=== PATIENT | male | born 1940 | race Hispanic/Latino ===

== ENCOUNTER 2018-02-16 06:44 | Day surgery (SDC) | payer MEDICARE, OTHER ==
[2018-02-08 08:37] VITALS: BMI 25.8
[2018-02-16] MEDS ORDERED: Propofol 10 mg/ml Inj (20 ML) ONE (08:33)
[2018-02-16] MEDS ORDERED: Sodium Chloride 0.9% 1,000 ML IV SCH (09:30)
[2018-02-16 09:54] VITALS: O2SAT 99
[2018-02-16 10:23] VITALS: BP 120/65; PULSE 67; RESP 16; TEMP 97.7
== END 2018-02-16 10:55 | disposition home or self-care (01) ==
LOC: ENDO 06:44
PROVIDERS: ATTEND Internal Medicine Gastroenterology
DX: K29.50 Unspecified chronic gastritis without bleeding (principal); K44.9 Diaphragmatic hernia without obstruction or gangrene; K90.0 Celiac disease; K21.9 Gastro-esophageal reflux disease without esophagitis; I10 Essential (primary) hypertension; D50.9 Iron deficiency anemia, unspecified; D63.8 Anemia in other chronic diseases classified elsewhere; E03.9 Hypothyroidism, unspecified; Z87.11 Personal history of peptic ulcer disease; Z80.8 Family history of malignant neoplasm of other organs or systems
CPT/HCPCS: 43239; 88305; 88342; J2704; J7040 ×2

== ENCOUNTER 2019-03-17 22:48 | Emergency (ER) | payer MEDICARE, OTHER ==
[2019-03-17 22:49] VITALS: BMI 25.8
[2019-03-17 23:48] VITALS: TEMP 98.1
--- NOTE | 2019-03-17 23:56 | ED PDOC ---
Arrival/HPI - General Chief Complaint: Abdominal Pain Time Seen by Provider: 03/17/19 22:53 Historian: Patient - History of Present Illness Narrative History of Present Illness (Text): 03/17/19 23:56 Ezekiel Chong is a 78 year old male, whose past medical history includes Celiac disease, chronic kidney disease, and nephrolithiasis, who presents to the ED complaining of flank pain. Patient states he began experiencing RLQ pain radiat ing to his right flank since this afternoon. Patient denies any fever, chills, nausea, vomiting, diarrhea, urinary symptoms, neck pain, headache, dizziness, or any other complaints. Symptom Onset: Gradual Symptom Course: Unchanged Activities at Onset: Light Context: Home Past Medical History - Provider Review Nursing Documentation Reviewed: Yes - Infectious Disease Hx of Infectious Diseases: None - Tetanus Immunization Tetanus Immunization: Unknown - Cardiac Hx Pacemaker: No - Pulmonary Hx Respiratory Disorders: No - Neurological Hx Paralysis: No - HEENT Hx HEENT Disorder: Yes (wears rx glasses,strabismus with surgery) Hx Deafness: No - Hematological/Oncological Hx Blood Transfusions: No Hx Blood Transfusion Reaction: No - Integumentary Hx Dermatological Disorder: Yes Hx Basal Cell Carcinoma: Yes (skin of right side of eye,right cheek) Hx Melanoma: Yes - Musculoskeletal/Rheumatological Hx Musculoskeletal Disorders: No - Gastrointestinal Hx Gastrointestinal Disorders: Yes (caeliac dse) Hx Pancreatitis: Yes - Psychiatric Hx Emotional Abuse: No Hx Physical Abuse: No Hx Substance Use: No - Past Surgical History Past Surgical History: No Previous - Surgical History Hx Orthopedic Surgery: Yes (r rotator cuff repair 13 yrs ago) - Anesthesia Hx Anesthesia: Yes Hx Anesthesia Reactions: No Hx Malignant Hyperthermia: No - Suicidal Assessment Feels Threatened In Home Enviroment: No Family/Social History - Physician Review Nursing Documentation Reviewed: Yes Family/Social History: Unknown Family HX Smoking Status: Never Smoked Hx Alcohol Use: Yes (SOCIALLY) Hx Substance Use: No Hx Substance Use Treatment: No Allergies/Home Meds Allergies/Adverse Reactions: Allergies No Known Allergies Allergy (Verified 09/29/14 21:08) Home Medications: Home Meds Medication Instructions Recorded Confirmed Levothyroxine [Synthroid] 25 mcg PO QAM 03/14/14 02/16/18 Ascorbic Acid [Vitamin C] 1,000 mg PO DAILY 10/05/16 02/08/18 Cholecalciferol [Vitamin D] 1,000 iu PO DAILY 10/05/16 02/08/18 Folic Acid 1 mg PO DAILY 10/05/16 02/08/18 Multivitamin [One Daily] 1 tab PO DAILY 10/05/16 02/08/18 Omeprazole 20 mg PO DAILY 10/05/16 02/08/18 amLODIPine [Norvasc] 10 mg PO DAILY 02/08/18 02/08/18 Review of Systems - Physician Review All systems were reviewed & negative as marked: Yes - Review of Systems Constitutional: Normal. absent: Fevers Eyes: Normal ENT: Normal Respiratory: Normal. absent: SOB, Cough Cardiovascular: Normal. absent: Chest Pain Gastrointestinal: Abdominal Pain. absent: Diarrhea, Nausea, Vomiting Genitourinary Male: Normal. absent: Dysuria, Frequency, Hematuria, Urinary Output Changes Musculoskeletal: Back Pain. absent: Neck Pain Skin: Normal. absent: Rash Neurological: Normal. absent: Headache, Dizziness Endocrine: Normal Hemo/Lymphatic: Normal Psychiatric: Normal Physical Exam Vital Signs Reviewed: Yes Vital Signs Temp Pulse Resp BP Pulse Ox 03/17/19 22:49 98.1 F 65 18 127/68 97 Temperature: Afebrile Blood Pressure: Normal Pulse: Regular Respiratory Rate: Normal Appearance: Positive for: Well-Appearing, Non-Toxic, Comfortable Pain Distress: None Mental Status: Positive for: Alert and Oriented X 3 - Systems Exam Head: Present: Atraumatic, Normocephalic Pupils: Present: PERRL Extroacular Muscles: Present: EOMI Conjunctiva: Present: Normal Mouth: Present: Moist Mucous Membranes Neck: Present: Normal Range of Motion Respiratory/Chest: Present: Clear to Auscultation, Good Air Exchange. No: Respiratory Distress, Accessory Muscle Use Cardiovascular: Present: Regular Rate and Rhythm, Normal S1, S2. No: Murmurs Abdomen: No: Tenderness, Distention, Peritoneal Signs Back: Present: Normal Inspection Upper Extremity: Present: Normal Inspection. No: Cyanosis, Edema Lower Extremity: Present: Normal Inspection. No: Edema Neurological: Present: GCS=15, CN II-XII Intact, Speech Normal Skin: Present: Warm, Dry, Normal Color. No: Rashes Psychiatric: Present: Alert, Oriented x 3, Normal Insight, Normal Concentration Medical Decision Making ED Course and Treatment: 03/17/19 23:56 Impression: 78 year old male complaining of RLQ pain radiating to his right flank. Plan: -- Labs, lipase -- Urinalysis -- IV fluids -- Zofran -- Morphine -- Reassess and disposition Prior Visits: Notes and results from previous visits were reviewed. Progress Notes: 03/18/19 03:34 CT Abdomen and Pelvis: Moderate prostatomegaly. Benign chronic prostatic calcifications. Uncomplicated colonic diverticulosis. Fluid-filled terminal ileum. Fluid-filled cecum and ascending colon. 4 mm obstructing stone at the right ureterovesical junction. Moderate right hydroureteronephrosis. Bilateral nonobstructing renal stones are noted with the largest measuring 9 mm on the left side. The visualized lung bases are unremarkable. Normal unenhanced liver. Normal gallbladder and extrahepatic biliary system. Normal unenhanced spleen. Normal pancreas. Normal bilateral adrenal glands. Normal size of the right kidney. There is no right renal mass. Normal size of the left kidney. There is no left renal mass. There is no left hydronephrosis. Normal visualized left ureter. Normal visualized stomach. Normal small intestine. The appendix is visualized and appears normal. There is no demonstrated peritoneal fluid. Calcified atheromatous plaques of the abdominal aorta. Normal inferior vena cava. Normal retroperitoneum. Normal urinary bladder. There is no pelvic mass lesion or lymphadenopathy. There is no pelvic fluid. Normal abdominal wall. Spondylosis. IMPRESSION: Obstructing stone of the right ureterovesical junction. Electronically signed on Mar 18, 2019 3:28:15 AM EDT by: Chayito Zepeda M.D., Certified by ADDY, MSK, Neuroradiology 03/18/19 03:39 On re-evaluation, pt has remained symptomatic while in ED. Will discharge pt home for follow-up with his urologist, Dr. Magdaleno, tomorrow. Pt was instructed to return if symptoms worsen or new concerning symptoms arise. - Lab Interpretations I have reviewed the lab results: Yes - RAD Interpretation Suit Attendant: Radiologist - Scribe Statement The provider has reviewed the documentation as recorded by the Shantel Mathew Provider Scribe Attestation: All medical record entries made by the Scribe were at my direction and personally dictated by me. I have reviewed the chart and agree that the record accurately reflects my personal performance of the history, physical exam, medical decision making, and the department course for this patient. I have also personally directed, reviewed, and agree with the discharge instructions and disposition. Disposition/Present on Arrival - Present on Arrival Any Indicators Present on Arrival: No History of DVT/PE: No History of Uncontrolled Diabetes: No Urinary Catheter: No History of Decub. Ulcer: No History Surgical Site Infection Following: None - Disposition Have Diagnosis and Disposition been Completed?: Yes Diagnosis: Renal colic Disposition: HOME/ ROUTINE Disposition Time: 03:36 Patient Plan: Discharge Condition: GOOD Discharge Instructions (ExitCare): Renal Colic (DC) Additional Instructions: Drink plenty of liquids/medication as prescribed if needed/follow up with your urologist Dr.Kerr woods/any recurrent worsening symptoms return to the emergency room Prescriptions: Tramadol HCl [Ultram] 50 mg PO Q6 PRN #16 tab PRN Reason: Pain, Moderate (4-7) Referrals: Roman Boucher MD [Primary Care Provider] - Follow up with primary Felix Magdaleno MD [Staff Provider] - Follow up with primary Forms: [employer] (Wallisian)
[2019-03-17] MEDS ORDERED: Morphine 4 mg/ml ISec IVP STA (23:59)
[2019-03-17] MEDS ORDERED: Sodium Chloride 0.9% 1,000 ML IV STA (23:59)
[2019-03-18 00:30] LABS: HEMOGLOBIN 11.2 g/dL (14.0-18.0); MEAN CELL VOLUME 92.6 fl (80.0-105.0); MEAN CORPUSCULAR HEMOGLOBIN 30.6 pg (25.0-35.0); MEAN PLATELET VOLUME 12.4 fl (7.0-11.0); RBC 3.66 10^6/uL (3.5-6.1); RED CELL DISTRIBUTION WIDTH 13.8 % (11.5-14.5); WHITE BLOOD COUNT 9.2 10^3/uL (4.5-11.0)
[2019-03-18 00:47] LABS: ALB/GLOB RATIO 0.9 (1.1-1.8)
[2019-03-18 01:25] LABS: ALBUMIN 4.5 g/dL (3.0-4.8); CALCIUM 9.2 mg/dL (8.4-10.5)
[2019-03-18 02:49] LABS: URINE BILIRUBIN NEGATIVE (NEGATIVE); URINE BLOOD SMALL (NEGATIVE); URINE GLUCOSE (UA) NEGATIVE (NEGATIVE); URINE LEUKOCYTE ESTERASE NEGATIVE Leu/uL (NEGATIVE); URINE PROTEIN TRACE mg/dL (<30 mg/dL); URINE UROBILINOGEN 0.2 E.U./dL (<1 E.U./dL)
[2019-03-18 02:51] LABS: URINE APPEARANCE CLEAR (CLEAR); URINE COLOR YELLOW (YELLOW)
[2019-03-18 03:05] LABS: URINE EPITHELIAL CELLS 0 - 2 /hpf (0-5); URINE RBC 0 - 2 /hpf (0-2); URINE WBC 0 - 2 /hpf (0-6)
--- NOTE | 2019-03-18 05:08 | CT ---
Date of service: 03/18/2019 PROCEDURE: CT Abdomen and Pelvis without intravenous contrast HISTORY: right flank pain COMPARISON: 09/24/2018 TECHNIQUE: Axial and reformatted coronal and sagittal CT images of the abdomen and pelvis were obtained without IV or oral contrast administration. Contrast dose: 0 Radiation dose: Total exam DLP = 617.76 mGy-cm. This CT exam was performed using one or more of the following dose reduction techniques: Automated exposure control, adjustment of the mA and/or kV according to patient size, and/or use of iterative reconstruction technique. FINDINGS: LOWER THORAX: No evidence of acute pathology LIVER: Unremarkable. No gross lesion or ductal dilatation. GALLBLADDER AND BILE DUCTS: Unremarkable. PANCREAS: Limited evaluation of the pancreas due to motion artifact. The main pancreatic duct is not dilated. SPLEEN: Unremarkable. ADRENALS: Mild diffuse enlargement of both adrenal glands noted KIDNEYS AND URETERS: Interval appearance of mild to moderate right hydronephrosis and hydroureter up to 4 millimeter calculus at the distal right ureter at or adjacent to the right UV junction. Again noted are bilateral nonobstructing renal calculi with the largest calculus is seen in the left kidney measures 9 millimeter. VASCULATURE: Unremarkable. No aortic aneurysm. Diffuse aortic calcification is noted. BOWEL: Mildly distended small bowel loops noted without CT evidence of high-grade bowel obstruction. [id number] constipation. The possibility of mild bowel ileus should be considered. Colonic diverticulosis are noted without evidence of diverticulitis. APPENDIX: There is no evidence of appendicitis. PERITONEUM: Unremarkable. No free fluid. No free air. LYMPH NODES: Unremarkable. No enlarged lymph nodes. BLADDER: Mild urinary bladder wall thickening. REPRODUCTIVE: Moderately enlarged prostate. BONES: No acute fracture. OTHER FINDINGS: None. IMPRESSION: Mild to moderate right hydronephrosis and hydroureter up to 4 millimeter obstructing calculus at the distal right ureter adjacent to the UV junction. Bilateral nonobstructing renal calculi. Mildly dilated small and large bowel loops suspicious for mild bowel ileus. [id number] constipation. Colonic diverticulosis without evidence of diverticulitis. Preliminary report was submitted by [facility] Radiology contains concordant findings.
[2019-03-18 05:16] VITALS: O2SAT 98
[2019-03-18 05:17] VITALS: BP 128/67; PULSE 67; RESP 17
== END 2019-03-18 03:42 | disposition home or self-care (01) ==
LOC: ED 22:48
DX: N23 Unspecified renal colic (principal); K90.0 Celiac disease; N18.9 Chronic kidney disease, unspecified
CPT/HCPCS: 74176; 80053; 81001; 83690; 85027; 96361; 96374; 96375; 99284; J2270; J2405; J7030

== ENCOUNTER 2019-03-20 09:51 | Outpatient (CLI) | payer MEDICARE, OTHER | END 2019-03-20 09:52 | disposition home or self-care (01) | LOC: RAD 09:51 ==

== ENCOUNTER 2019-03-22 06:19 | Outpatient (CLI) | payer MEDICARE, OTHER | END 2019-03-22 06:20 | disposition home or self-care (01) | LOC: PAT 06:19 ==

== ENCOUNTER 2019-03-28 07:25 | Day surgery (SDC) | payer MEDICARE, OTHER ==
[2019-03-22 07:03] VITALS: BMI 23.5
[2019-03-28] MEDS ORDERED: Iohexol 240 (50 ml) ONE (10:07)
[2019-03-28] MEDS ORDERED: Propofol 10 mg/ml Inj (20 ML) ONE (10:07)
[2019-03-28] MEDS ORDERED: Lidocaine 1% Inj (20ml) ONE (10:09)
[2019-03-28] MEDS ORDERED: ePHEDrine 50 mg/ml Inj ONE (10:24)
[2019-03-28] MEDS ORDERED: cefTRIAXone (Rocephin) 1 gm Inj ONE (10:29)
[2019-03-28] MEDS ORDERED: Lidocaine 2% Jelly (30 ml) ONE (10:46)
[2019-03-28] MEDS ORDERED: Lidocaine 2% Jelly (Uro-Jet) ONE (10:46)
[2019-03-28] MEDS ORDERED: HYDROmorphone 0.5 mg/0.5 ml ISec IVP PRN (10:55)
[2019-03-28] MEDS ORDERED: Lactated Ringer's 1,000 ML IV SCH (11:00)
[2019-03-28 11:51] VITALS: PULSE 83; RESP 20; TEMP 96.8; O2SAT 95
[2019-03-28 12:50] VITALS: BP 122/70
--- NOTE | 2019-03-28 12:52 | OP ---
PROCEDURE DATE: 03/28/2019 PREOPERATIVE DIAGNOSES: Right ureteral calculus, renal colic. POSTOPERATIVE DIAGNOSES: Right ureteral calculus, renal colic. PROCEDURES: Cystoscopy, right retrograde pyelogram, right ureteroscopy. ATTENDING SURGEON: Felix Magdaleno MD ANESTHESIA: General. SPECIMENS: None. DRAINS: None. COMPLICATIONS: None. OPERATIVE FINDINGS: After informed consent was obtained, the patient was taken to operating room, placed on operating table. Anesthesia was administered. The patient received IV antibiotics. She was placed in a dorsal lithotomy position and prepped and draped in usual sterile fashion. A 22-Lebanese cystoscope was placed in the patient's urethra and advanced proximally under direct vision until the bladder was entered. A full survey inspection of bladder was then performed which revealed few scattered small calculi, largest 3 to 4 mm in size. There were no papillary bladder tumors noted. Bladder was trabeculated with grade 2 to 3 trabeculation. Both ureteral orifices were visualized and appeared within normal limits. Exam of the urethra revealed an enlarged prostate with moderate trilobar hypertrophy. At this point, an open-ended ureteral catheter was advanced through the cystoscope and guided into the right ureteral orifice. The right retrograde pyelogram was then performed by instilling contrast through the catheter into the right ureter during real-time fluoroscopy. The right ureter appeared mildly dilated in its midportion with some tortuosity noted. There was a mobile filling defect in the mid to lower ureter which appeared to move with instillation of contrast but was persistent. It was questionable whether this was the small calculus seen on CT or an air bubble. The upper ureter had no filling defects but had some tortuosity and dilatation. There was no overt hydronephrosis noted. At this point, decision was made to perform a ureteroscopy. A sensor wire was obtained and passed through the open-ended ureteral catheter, advanced up the ureter under fluoroscopic guidance until it coiled in the upper collecting system. The bladder was drained, the cystoscope was removed while leaving the wire placed. A 7-Lebanese ureteroscope was then obtained and was passed under direct vision into the bladder and guided into the right ureteral orifice. The ureteroscope was able to be advanced proximally up to the level and into the renal pelvis. There were no calculi seen. There were no calculi noted in the renal pelvis. There were no other ureteral abnormalities noted. The ureteroscope was then withdrawn under direct vision. Again, there were no stones encountered or ureteral abnormalities noted. The ureteroscope was then withdrawn from the patient. At this point, the cystoscope was then re-passed while back loading the guidewire. The open-ended ureteral catheter was again advanced over the wire into the kidney and contrast was then instilled into the system. The wire had been removed. The ureteral catheter was then removed, the bladder was then drained and the cystoscope was removed. On delayed fluoroscopic imaging, contrast was noted to be exiting from the kidney down the ureter without any evidence of obstruction and into the bladder. At this point, the procedure was completed. The patient was returned to the supine position and taken to the recovery room awake in stable condition.. Felix Magdaleno MD
--- NOTE | 2019-03-28 13:20 | RAD ---
Date of service: 03/28/2019 PROCEDURE: Retrograde pyelogram HISTORY: R/O STONE COMPARISON: TECHNIQUE: 41.1 sec of fluoro time. Cumulative dose 7.44 mGy. 13 images submitted FINDINGS: There is a focal area of narrowing in the distal ureter with proximal dilatation. There is passage of a wire and instrument to the level of the proximal ureter and renal collecting system. There are no filling defects visualized. IMPRESSION: As above
== END 2019-03-28 13:00 | disposition home or self-care (01) ==
LOC: SDS 07:25
PROVIDERS: ATTEND Urology
DX: N20.1 Calculus of ureter (principal); I10 Essential (primary) hypertension
CPT/HCPCS: 52351; 74420; C1769; J0696; J1170; J2405; J2704; J2765; J3010; J7120 ×2; Q9966